=== PATIENT | male | born 1955 | race Native Hawaiian/Other Pacific Islander ===

== ENCOUNTER 2018-08-19 18:26 | Emergency (ER) | payer OTHER ==
[2018-08-19] MEDS ORDERED: LET TOPICAL TP ONE (22:02)
--- NOTE | 2018-08-19 22:02 | Emergency Department Report ---
ED GI Bleed HPI - General Chief complaint: GI Bleed Stated complaint: hemorrhoid pain Time Seen by Provider: 08/19/18 21:11 Source: patient, family Mode of arrival: Ambulatory Limitations: No Limitations - History of Present Illness Initial comments: This is a 63-year-old male here complaining of rectal pain with bleeding in for a long time. I specifically asked patient how long he said for 5 years. 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 He said his pain is 5 out of 10 and he is worried about his prostate and that he might be bleeding and that he just got insurance and he wants to have a full checkup. Force that he is to change his underwear every day per there is some blood in his underwear. Denies any feeling of weakness, denies abdominal pain. Denies back pain. Denies any urinary burning, frequency or urgency. He said the specialist that he saw was a stomach specialist and a little located in [place] and he did not like him. MD complaint: blood on toilet paper, blood streaked stool, other (blood in underwear were rectal pain and hemorrhoids) Onset/Timin -: year(s) Radiation: other (rectal pain externally) Severity scale (0 -10): 6 Quality: burning Consistency: constant Improves with: none Worsens with: bowel movement, other (touch and) Context: hemorrhoids, other (history of procedure for hemorrhoids internally.) Associated Symptoms: denies: abdominal pain, nausea, vomiting, epistaxis, fever/chills, headaches, loss of appetite, malaise, easy bruising, rash, other bleeding, shortness of breath, syncope, weakness Treatments Prior to Arrival: none - Related Data Previous Rx's Medication Instructions Recorded Last Taken Type HYDROcodone/APAP 5-325 [[place] 1 each PO Q6HR PRN #14 tablet 08/10/13 Unknown Rx 5/325 mg] Hydrocortisone/Lidocaine/Aloe 100 gm RC TID PRN #1 gel.w.appl 08/20/18 Unknown Rx [Lidocaine-Hc 2.8-0.55% Gel] Allergies Allergy/AdvReac Type Severity Reaction Status Date / Time Penicillins Allergy Hives Verified 08/19/18 18:32 ED Review of Systems ROS: Stated complaint: hemorrhoid pain Other details as noted in HPI Constitutional: denies: chills, fever ENT: denies: throat pain, congestion Respiratory: denies: cough, shortness of breath, wheezing Cardiovascular: denies: chest pain, palpitations, dyspnea on exertion, edema, syncope Gastrointestinal: hematochezia. denies: abdominal pain, nausea, vomiting, diarrhea, constipation, hematemesis Genitourinary: other (rectal pain). denies: urgency, dysuria, frequency, hematuria, discharge Musculoskeletal: denies: back pain, joint swelling, arthralgia, myalgia Skin: denies: rash Neurological: denies: headache, weakness, numbness, paresthesias, abnormal gait, vertigo ED Past Medical Hx - Past Medical History Previous Medical History?: Yes Hx Hypertension: Yes - Surgical History Past Surgical History?: No - Family History Family history: hypertension - Social History Smoking Status: Current Some Day Smoker Substance Use Type: None - Medications Home Medications: Home Medications Medication Instructions Recorded Confirmed Last Taken Type HYDROcodone/APAP 5-325 [[place] 1 each PO Q6HR PRN #14 tablet 08/10/13 Unknown Rx 5/325 mg] Hydrocortisone/Lidocaine/Aloe 100 gm RC TID PRN #1 gel.w.appl 08/20/18 Unknown Rx [Lidocaine-Hc 2.8-0.55% Gel] ED Physical Exam - General Limitations: No Limitations General appearance: alert, in no apparent distress - Head Head exam: Present: atraumatic, normocephalic, normal inspection - Eye Eye exam: Present: normal appearance, PERRL, EOMI Pupils: Present: normal accommodation - ENT ENT exam: Present: normal exam, normal orophraynx, mucous membranes moist - Neck Neck exam: Present: normal inspection, full ROM. Absent: tenderness, mening ismus, lymphadenopathy - Respiratory Respiratory exam: Present: normal lung sounds bilaterally. Absent: respiratory distress, chest wall tenderness - Cardiovascular Cardiovascular Exam: Present: regular rate, normal rhythm, normal heart sounds. Absent: systolic murmur, diastolic murmur - GI/Abdominal GI/Abdominal exam: Present: soft, normal bowel sounds. Absent: distended, tend erness, guarding, rebound, rigid, organomegaly, mass, bruit, pulsatile mass - Rectal Rectal exam: Present: normal rectal tone, heme (-) stool, hemorrhoids, tende rness (externally at hemorrhoid site). Absent: bloody stool, fecal impaction, mass, prostate tenderness - Extremities Exam Extremities exam: Present: normal inspection, full ROM, normal capillary refill, other (No cce. + 2 pulses in all extremities, no neurovascular compromise). Absent: tenderness, pedal edema - Back Exam Back exam: Present: normal inspection, full ROM, other (ambulates without any difficulties). Absent: tenderness, CVA tenderness (R), CVA tenderness (L), muscle spasm, paraspinal tenderness, vertebral tenderness, rash noted - Neurological Exam Neurological exam: Present: alert, oriented X3, normal gait - Psychiatric Psychiatric exam: Present: normal affect, normal mood - Skin Skin exam: Present: warm, dry, intact, normal color. Absent: rash ED Course Vital Signs 08/19/18 18:32 Temperature 99.1 F Pulse Rate 98 H Respiratory 18 Rate Blood Pressure 160/101 O2 Sat by Pulse 100 Oximetry Vital Signs 08/19/18 08/20/18 18:32 00:28 Temperature 99.1 F 98.2 F Pulse Rate 98 H 82 Respiratory 18 20 Rate Blood Pressure 160/101 Blood Pressure 156/89 [Left] O2 Sat by Pulse 100 97 Oximetry - Reevaluation(s) Reevaluation #1: 08/20/18 00:21 Topical let given to patient placed on hemorrhoids and a voice that it feels b nva. I gave him results of his CBC which was normal and no anemia found. ED Medical Decision Making - Lab Data Result diagrams: 08/19/18 22:00 Lab Results 08/19/18 Range/Units 22:00 WBC 8.9 (4.5-11.0) K/mm3 RBC 4.70 (3.65-5.03) M/mm3 Hgb 14.9 (11.8-15.2) gm/dl Hct 44.4 (35.5-45.6) % MCV 95 H (84-94) fl MCH 32 (28-32) pg MCHC 33 (32-34) % RDW 14.1 (13.2-15.2) % Plt Count 319 (140-440) K/mm3 Lymph % (Auto) 27.4 (13.4-35.0) % [place] % (Auto) 7.7 H (0.0-7.3) % Eos % (Auto) 1.8 (0.0-4.3) % Baso % (Auto) 1.0 (0.0-1.8) % Lymph # 2.4 (1.2-5.4) K/mm3 [place] # 0.7 (0.0-0.8) K/mm3 Eos # 0.2 (0.0-0.4) K/mm3 Baso # 0.1 (0.0-0.1) K/mm3 Seg Neutrophils % 62.1 (40.0-70.0) % Seg Neutrophils # 5.6 (1.8-7.7) K/mm3 - Medical Decision Making This is a 65-year-old male here report that he is having in rectal pain and bleeding from hemorrhoids. Patient had been placed around hemorrhoids last year at GI specialist but he said he did not go back because he did not like him. Patient is now here complaining that he needs to be checked. Hemoccult stool negative for bleeding. CBC is stable and rectal exam normal except he has external hemorrhoids. Patient was given LET to place on hemorrhoids which she did any studies from better. I discussed his laboratory results and treatment plan along with diagnosis and told him that he will need to follow up with primary care doctor as he does not have one, tower erector for his stomach and colonoscopy and surgeon for evaluation of hemorrhoids and probably removal. Patient does have access to care but he does not have any physician. Patient reports that he has stool everyday and stool is soft. Patient is given prescri ption for hydrocodone with lidocaine mixture and I told him that he needs to call all doctors that he was referred to on 08/22/2017 to schedule an appointment. Vital signs stable afebrile and in no acute distress. Critical care attestation.: If time is entered above; I have spent that time in minutes in the direct care of this critically ill patient, excluding procedure time. ED Disposition Clinical Impression: Rectal pain, External hemorrhoids without complication Disposition: DC-01 TO HOME OR SELFCARE Is pt being admited?: No Does the pt Need Aspirin: No Condition: Stable Instructions: Hemorrhoids (ED), Colonoscopy (GEN) Additional Instructions: Follow-up with multiple referrals given 2 units include primary care doctor, tower erector for colonoscopy, surgeon for hemorrhoids. Please see discharge instruction for details. Take medication as prescribed If you developed perfuse rectal bleeding and feeling weak, return to the emergency room otherwise call to schedule appointments next week. You will need to follow up in 2-3 days. Referrals: [facility] [Provider Group] - 2-3 Days ASHLEY JAVIER MD [Staff Physician] - 2-3 Days POLO SHEEHAN MD [Primary Care Provider] - 2-3 Days Forms: Accompanied Note
[2018-08-19 22:06] LABS: Basophils # (Auto) 0.1 K/mm3 (0.0-0.1); Eosinophils # (Auto) 0.2 K/mm3 (0.0-0.4); Eosinophils % (Auto) 1.8 % (0.0-4.3); Hematocrit 44.4 % (35.5-45.6); Hemoglobin 14.9 gm/dl (11.8-15.2); Lymphocytes # (Auto) 2.4 K/mm3 (1.2-5.4); Lymphocytes % (Auto) 27.4 % (13.4-35.0); Mean Corpuscular HGB Conc 33 % (32-34); Mean Corpuscular Volume 95 fl (84-94); Monocytes # (Auto) 0.7 K/mm3 (0.0-0.8); Monocytes % (Auto) 7.7 % (0.0-7.3); Platelet Count 319 K/mm3 (140-440); Red Cell Distribution Width 14.1 % (13.2-15.2)
[2018-08-20 00:29] VITALS: BP 156/89
== END 2018-08-20 02:06 | disposition home or self-care (01) ==
LOC: ED 18:26
DX: K64.4 Residual hemorrhoidal skin tags (principal); I10 Essential (primary) hypertension; F17.200 Nicotine dependence, unspecified, uncomplicated; Z79.899 Other long term (current) drug therapy; Z88.0 Allergy status to penicillin
CPT/HCPCS: 36415; 85025; 99283

== ENCOUNTER 2019-06-03 21:26 | Emergency (ER) | payer OTHER ==
--- NOTE | 2019-06-03 21:46 | Emergency Department Report ---
Blank Doc - Documentation Documentation: 64-year-old male that presents with dysuria and hematuria. This initial assessment/diagnostic orders/clinical plan/treatment(s) is/are subject to change based on patient's health status, clinical progression and re- assessment by fellow clinical providers in the ED. Further treatment and workup at subsequent clinical providers discretion. Patient/guardians urged not to elope from the ED as their condition may be serious if not clinically assessed and managed. Initial orders include: 1- Patient sent to [facility] for further evaluation and treatment 2- UA
[2019-06-03 22:17] LABS: Bilirubin,Urine NEG (Negative); Blood,Urine LG (Negative); Color,Urine Yellow (Yellow); Urobilinogen,Urine < 2.0 mg/dL (<2.0)
[2019-06-03 22:21] LABS: RBC,Urine > 182.0 /HPF (0.0-6.0)
--- NOTE | 2019-06-03 23:32 | Emergency Department Report ---
ED Male HPI - General Chief complaint: Urogenital-Male Stated complaint: BLOOD IN URINE Time Seen by Provider: 06/03/19 21:45 Source: patient Mode of arrival: Ambulatory Limitations: No Limitations - History of Present Illness Initial comments: This is a 64-year-old male who presents to the emergency room with hematuria and pelvic pain for 2 days. Past medical history of hypertension and nephrolithiasis. Current smoker. Reports urinary frequency with stabbing pain. Denies nausea, vomiting, diarrhea, penile discharge, testicular swelling or pain. MD Complaint: other (hematuria and pelvic pain) Onset/Timin -: days(s) Location: abdomen Radiation: none Severity: moderate Severity scale (0 -10): 6 Quality: stabbing Consistency: intermittent Improves with: none Worsens with: urination denies other symptoms - Related Data Previous Rx's Medication Instructions Recorded Last Taken Type Aspirin [Aspirin BABY CHEW TAB] 81 mg PO QDAY #30 tab.chew 12/09/18 Unknown Rx AtorvaSTATin [Lipitor] 40 mg PO QHS #30 tab 12/09/18 Unknown Rx Carvedilol [Coreg] 6.25 mg PO BID #60 tablet 12/09/18 Unknown Rx Clopidogrel [Plavix] 75 mg PO QDAY #30 tablet 12/09/18 Unknown Rx Furosemide [Lasix TAB] 40 mg PO QDAY #30 tablet 12/09/18 Unknown Rx ISOSORBIDE MONOnitrate [Imdur ER] 30 mg PO DAILY #30 tab.er.24h 12/09/18 Unknown Rx Nitroglycerin [Nitrostat] 0.4 mg SL Q5M PRN #25 tab 12/09/18 Unknown Rx Spironolactone [Aldactone] 25 mg PO QDAY #30 tablet 12/09/18 Unknown Rx Sulfamethoxazole/Trimethoprim 1 each PO BID #14 tablet 06/04/19 Unknown Rx [Bactrim DS TAB] Allergies Allergy/AdvReac Type Severity Reaction Status Date / Time Penicillins Allergy Hives Verified 08/19/18 18:32 ED Review of Systems ROS: Stated complaint: BLOOD IN URINE Other details as noted in HPI Constitutional: denies: chills, fever Respiratory: denies: cough, shortness of breath, wheezing Cardiovascular: denies: chest pain, palpitations Gastrointestinal: abdominal pain. denies: nausea, diarrhea Genitourinary: frequency, hematuria. denies: urgency, dysuria, discharge, testicular pain, testicular mass Musculoskeletal: denies: back pain, joint swelling, arthralgia Skin: denies: rash, lesions Neurological: denies: headache, weakness, paresthesias Psychiatric: denies: anxiety, depression ED Past Medical Hx - Past Medical History Hx Hypertension: Yes - Surgical History Additional Surgical History: hemroids - Social History Smoking Status: Never Smoker Substance Use Type: Alcohol - Medications Home Medications: Home Medications Medication Instructions Recorded Confirmed Last Taken Type Aspirin [Aspirin BABY CHEW TAB] 81 mg PO QDAY #30 tab.chew 12/09/18 Unknown Rx AtorvaSTATin [Lipitor] 40 mg PO QHS #30 tab 12/09/18 Unknown Rx Carvedilol [Coreg] 6.25 mg PO BID #60 tablet 12/09/18 Unknown Rx Clopidogrel [Plavix] 75 mg PO QDAY #30 tablet 12/09/18 Unknown Rx Furosemide [Lasix TAB] 40 mg PO QDAY #30 tablet 12/09/18 Unknown Rx ISOSORBIDE MONOnitrate [Imdur ER] 30 mg PO DAILY #30 tab.er.24h 12/09/18 Unknown Rx Nitroglycerin [Nitrostat] 0.4 mg SL Q5M PRN #25 tab 12/09/18 Unknown Rx Spironolactone [Aldactone] 25 mg PO QDAY #30 tablet 12/09/18 Unknown Rx Sulfamethoxazole/Trimethoprim 1 each PO BID #14 tablet 06/04/19 Unknown Rx [Bactrim DS TAB] ED Physical Exam - General Limitations: No Limitations General appearance: alert, in no apparent distress - Respiratory Respiratory exam: Present: normal lung sounds bilaterally. Absent: respiratory distress - Cardiovascular Cardiovascular Exam: Present: regular rate, normal rhythm. Absent: systolic murmur, diastolic murmur, rubs, gallop - GI/Abdominal GI/Abdominal exam: Present: soft, tenderness (suprapubic), normal bowel sounds. Absent: distended, guarding, rebound, rigid, organomegaly, mass, bruit, pulsatile mass, hernia - Back Exam Back exam: Absent: CVA tenderness (R), CVA tenderness (L), muscle spasm, paraspinal tenderness, vertebral tenderness, rash noted - Neurological Exam Neurological exam: Present: alert, oriented X3, normal gait - Psychiatric Psychiatric exam: Present: normal affect, normal mood - Skin Skin exam: Present: warm, dry, intact, normal color. Absent: rash ED Course Vital Signs 06/03/19 21:31 Temperature 97.5 F L Pulse Rate 73 Respiratory 18 Rate Blood Pressure 138/85 O2 Sat by Pulse 98 Oximetry ED Medical Decision Making - Lab Data Result diagrams: 06/03/19 23:49 06/03/19 23:49 Lab Results 06/03/19 06/03/19 06/03/19 Range/Units 21:53 23:49 23:49 WBC 7.4 (4.5-11.0) K/mm3 RBC 4.71 (3.65-5.03) M/mm3 Hgb 14.9 (11.8-15.2) gm/dl Hct 45.0 (35.5-45.6) % MCV 96 H (84-94) fl MCH 32 (28-32) pg MCHC 33 (32-34) % RDW 14.2 (13.2-15.2) % Plt Count 269 (140-440) K/mm3 Lymph % (Auto) 32.6 (13.4-35.0) % [place] % (Auto) 8.8 H (0.0-7.3) % Eos % (Auto) 3.7 (0.0-4.3) % Baso % (Auto) 1.1 (0.0-1.8) % Lymph # 2.4 (1.2-5.4) K/mm3 [place] # 0.7 (0.0-0.8) K/mm3 Eos # 0.3 (0.0-0.4) K/mm3 Baso # 0.1 (0.0-0.1) K/mm3 Seg Neutrophils % 53.8 (40.0-70.0) % Seg Neutrophils # 4.0 (1.8-7.7) K/mm3 Sodium 142 (137-145) mmol/L Potassium 4.2 (3.6-5.0) mmol/L Chloride 104.0 (98-107) mmol/L Carbon Dioxide 26 (22-30) mmol/L Anion Gap 16 mmol/L BUN 24 H (9-20) mg/dL Creatinine 1.1 (0.8-1.5) mg/dL Estimated GFR > 60 ml/min BUN/Creatinine Ratio 22 % Glucose 152 H (75-100) mg/dL Calcium 9.3 (8.4-10.2) mg/dL Total Bilirubin 0.30 (0.1-1.2) mg/dL AST 18 (5-40) units/L ALT 12 (7-56) units/L Alkaline Phosphatase 75 (35-129) units/L Total Protein 6.9 (6.3-8.2) g/dL Albumin 4.0 (3.9-5) g/dL Albumin/Globulin Ratio 1.4 % Urine Color Yellow (Yellow) Urine Turbidity Slightly-cloudy (Clear) Urine pH 6.0 (5.0-7.0) Ur Specific [place] 1.020 (1.003-1.030) Urine Protein 30 mg/dl (Negative) mg/dL Urine Glucose (UA) Neg (Negative) mg/dL Urine Ketones Neg (Negative) mg/dL Urine Blood Lg (Negative) Urine Nitrite Neg (Negative) Urine Bilirubin Neg (Negative) Urine Urobilinogen < 2.0 (<2.0) mg/dL Ur Leukocyte Esterase Neg (Negative) Urine WBC (Auto) 126.0 H (0.0-6.0) /HPF Urine RBC (Auto) > 182.0 (0.0-6.0) /HPF Urine Yeast (Budding) 2+ /HPF - Radiology Data Radiology results: report reviewed CT ABDOMEN AND PELVIS WITHOUT CONTRAST INDICATION / CLINICAL INFORMATION: pelvic pain, hematuria, r/o stones. TECHNIQUE: Axial CT images were obtained through the abdomen and pelvis without IV contrast. All CT scans at this location are performed using CT dose reduction for ALARA by means of automated exposure control. COMPARISON: CT dated 12/09/18 FINDINGS: LOWER CHEST: No significant abnormality. LIVER: Multiple simple cysts are unchanged. GALLBLADDER: No significant abnormality. BILE DUCTS: No significant abnormality. PANCREAS: No significant abnormality. SPLEEN: No significant abnormality. ADRENALS: No significant abnormality. RIGHT KIDNEY and URETER: Several tiny nonobstructing intrarenal stones. No ureteral stone or hydronephrosis. LEFT KIDNEY and URETER: Small nonobstructing stone in the upper pole. No ureteral stone or hydronephrosis. STOMACH and SMALL BOWEL: No significant abnormality. COLON: No significant abnormality. APPENDIX: No significant abnormality. PERITONEUM: No free fluid. No free air. No fluid collection. LYMPH NODES: No significant adenopathy. AORTA and ARTERIES: Mild atherosclerotic calcification without acute abnormalit y. IVC and VEINS: No significant abnormality. URINARY BLADDER: No significant abnormality. REPRODUCTIVE ORGANS: No significant abnormality. ADDITIONAL FINDINGS: None. SKELETAL SYSTEM: No significant abnormality. IMPRESSION: 1. No inflammatory process or bowel obstruction. 2. Bilateral nephrolithiasis but no ureteral stones or hydronephrosis. - Medical Decision Making Patient was examined by me. Patient is nontoxic appearing and stable. Vitals are normal. Obtained labs and CT of abdomen and pelvis. Urine positive for infection. Abdomen and pelvis 1. No inflammatory process or bowel obstruction. 2. Bilateral nephrolithiasis but no ureteral stones or hydronephrosis. Given analgesics while in the ER. Start bactrim DS 1 tab po bid x 7 days. Patient informed of results. Instructed to take Tylenol or ibuprofen for pain. Referral to Urology. Follow up with PCP or return to the ER with worsening symptoms. Patient discharged home in stable condition. Critical care attestation.: If time is entered above; I have spent that time in minutes in the direct care of this critically ill patient, excluding procedure time. ED Disposition Clinical Impression: Nephrolithiasis, Acute cystitis with hematuria Hematuria Qualifiers: Hematuria type: gross Qualified Code(s): R31.0 - Gross hematuria Disposition: - TO HOME OR SELFCARE Is pt being admited?: No Condition: Stable Instructions: Urinary Tract Infection in Men (ED), Kidney Stones (ED) Additional Instructions: Increase fluid intake to 1-2 L per day. Prescriptions: Sulfamethoxazole/Trimethoprim [Bactrim DS TAB] 1 each PO BID #14 tablet Referrals: [facility] [Provider Group] - 3-5 Days KASEY HAMILTON MD [Primary Care Provider] - 3-5 Days [facility] [Outside] - 3-5 Days Time of Disposition: 00:32
[2019-06-03 23:59] LABS: Basophils # (Auto) 0.1 K/mm3 (0.0-0.1); Basophils % (Auto) 1.1 % (0.0-1.8); Eosinophils # (Auto) 0.3 K/mm3 (0.0-0.4); Eosinophils % (Auto) 3.7 % (0.0-4.3); Hemoglobin 14.9 gm/dl (11.8-15.2); Lymphocytes # (Auto) 2.4 K/mm3 (1.2-5.4); Lymphocytes % (Auto) 32.6 % (13.4-35.0); Mean Corpuscular HGB Conc 33 % (32-34); Mean Corpuscular Volume 96 fl (84-94); Monocytes # (Auto) 0.7 K/mm3 (0.0-0.8); Monocytes % (Auto) 8.8 % (0.0-7.3); Platelet Count 269 K/mm3 (140-440); Red Blood Count 4.71 M/mm3 (3.65-5.03); Red Cell Distribution Width 14.2 % (13.2-15.2)
[2019-06-04 00:22] LABS: Alanine Aminotransferase 12 units/L (7-56); BUN/Creatinine Ratio 22; Blood Urea Nitrogen 24 mg/dL (9-20); Calcium 9.3 mg/dL (8.4-10.2); Hemolysis Index 4
--- NOTE | 2019-06-04 00:22 | Cat Scan Report ---
CT ABDOMEN AND PELVIS WITHOUT CONTRAST INDICATION / CLINICAL INFORMATION: pelvic pain, hematuria, r/o stones. TECHNIQUE: Axial CT images were obtained through the abdomen and pelvis without IV contrast. All CT scans at [facility] location are performed using CT dose reduction for ALARA by means of automated exposure control. COMPARISON: CT dated 12/09/18 FINDINGS: LOWER CHEST: No significant abnormality. LIVER: Multiple simple cysts are unchanged. GALLBLADDER: No significant abnormality. BILE DUCTS: No significant abnormality. PANCREAS: No significant abnormality. SPLEEN: No significant abnormality. ADRENALS: No significant abnormality. RIGHT KIDNEY and URETER: Several tiny nonobstructing intrarenal stones. No ureteral stone or hydronep hrosis. LEFT KIDNEY and URETER: Small nonobstructing stone in the upper pole. No ureteral stone or hydronephr osis. STOMACH and SMALL BOWEL: No significant abnormality. COLON: No significant abnormality. APPENDIX: No significant abnormality. PERITONEUM: No free fluid. No free air. No fluid collection. LYMPH NODES: No significant adenopathy. AORTA and ARTERIES: Mild atherosclerotic calcification without acute abnormality. IVC and VEINS: No significant abnormality. URINARY BLADDER: No significant abnormality. REPRODUCTIVE ORGANS: No significant abnormality. ADDITIONAL FINDINGS: None. SKELETAL SYSTEM: No significant abnormality. IMPRESSION: 1. No inflammatory process or bowel obstruction. 2. Bilateral nephrolithiasis but no ureteral stones or hydronephrosis. Signer Name: Mazin Zaldivar MD Signed: 06/04/2019 12:18 AM Workstation Name: [id number]
[2019-06-04 03:17] VITALS: BP 151/100
== END 2019-06-04 00:45 | disposition home or self-care (01) ==
LOC: ED 21:26
DX: N20.0 Calculus of kidney (principal); I10 Essential (primary) hypertension; Z88.0 Allergy status to penicillin; Z79.82 Long term (current) use of aspirin; Z79.899 Other long term (current) drug therapy
CPT/HCPCS: 36415; 74176; 80053; 81001; 85025; 87086; 99284

== ENCOUNTER 2019-06-04 17:19 | Emergency (ER) | payer OTHER ==
[2019-06-04 18:14] VITALS: BP 133/81
--- NOTE | 2019-06-04 18:14 | Event Note ---
ED Screening Note Date of service: 06/04/19 Time: 18:11 ED Screening Note: 64 y o male returns to ED cc stating medication he was given yesterday for UTI is making him experience diarhea. This initial assessment/diagnostic orders/clinical plan/treatment(s) is/are subject to change based on patients health status, clinical progression and re- assessment by fellow clinical providers in the ED. Further treatment and workup at subsequent clinical providers discretion. Patient/guardian urged not to elope from the ED as their condition may be serious if not clinically assessed and managed. Initial orders include:
[2019-06-04 19:42] LABS: Bilirubin,Urine NEG (Negative); Blood,Urine LG (Negative); Color,Urine Yellow (Yellow); Protein,Urine <15 mg/dL mg/dL (Negative); Urobilinogen,Urine < 2.0 mg/dL (<2.0)
[2019-06-04 19:43] LABS: RBC,Urine > 182.0 /HPF (0.0-6.0)
--- NOTE | 2019-06-04 20:36 | Emergency Department Report ---
Vomiting/Diarrhea - HPI Chief Complaint: Abdominal Pain Stated Complaint: ABD PAIN Time Seen by Provider: 06/04/19 19:03 Duration: 1 Day Severity: mild Nausea/Vomiting Severity: None Diarrhea Severity: Mild Pain Severity: None Symptoms: Yes Watery Diarrhea, No Bloody diarrhea, No Fever, No Able to Tolerate Fluids, No Recent Unusual Foods, No Recent Untreated Water, No Recent use of Antibiotics, No Family w/ Similar Symptoms, No Contacts w/ Similar Symptoms, No Rash, No Hematuria, No Recent URI Symptoms Other History: This is a 64-year-old male nontoxic, well nourished in appearance, no acute signs of distress presents to the ED with c/o of some diarrhea after started taking Bactrim. Was diagnoed with UTI yesterday. Patient denies any n/v. Patient denies any abdominal pain, chest pain, short of breath, fever, chills, headache, stiff neck, numbness or tingling. Patient denies any constipation. Patient denies any recent travels. Patient stated allergies to PCN. ED Review of Systems ROS: Stated complaint: ABD PAIN Other details as noted in HPI Constitutional: denies: chills, fever Eyes: denies: eye pain, eye discharge, vision change ENT: denies: ear pain, throat pain Respiratory: denies: cough, shortness of breath, wheezing Cardiovascular: denies: chest pain, palpitations Endocrine: no symptoms reported Gastrointestinal: diarrhea. denies: abdominal pain, nausea Genitourinary: denies: urgency, dysuria Musculoskeletal: denies: back pain, joint swelling, arthralgia Skin: denies: rash, lesions Neurological: denies: headache, weakness, paresthesias Psychiatric: denies: anxiety, depression Hematological/Lymphatic: denies: easy bleeding, easy bruising ED Past Medical Hx - Past Medical History Previous Medical History?: Yes Hx Hypertension: Yes - Surgical History Past Surgical History?: Yes Additional Surgical History: hemroids - Social History Smoking Status: Never Smoker Substance Use Type: None - Medications Home Medications: Home Medications Medication Instructions Recorded Confirmed Last Taken Type Aspirin [Aspirin BABY CHEW TAB] 81 mg PO QDAY #30 tab.chew 12/09/18 Unknown Rx AtorvaSTATin [Lipitor] 40 mg PO QHS #30 tab 12/09/18 Unknown Rx Carvedilol [Coreg] 6.25 mg PO BID #60 tablet 12/09/18 Unknown Rx Clopidogrel [Plavix] 75 mg PO QDAY #30 tablet 12/09/18 Unknown Rx Furosemide [Lasix TAB] 40 mg PO QDAY #30 tablet 12/09/18 Unknown Rx ISOSORBIDE MONOnitrate [Imdur ER] 30 mg PO DAILY #30 tab.er.24h 12/09/18 Unknown Rx Nitroglycerin [Nitrostat] 0.4 mg SL Q5M PRN #25 tab 12/09/18 Unknown Rx Spironolactone [Aldactone] 25 mg PO QDAY #30 tablet 12/09/18 Unknown Rx Ciprofloxacin HCl [Ciprofloxacin 500 mg PO Q12HR #14 tab 06/04/19 Unknown Rx TAB] Sulfamethoxazole/Trimethoprim 1 each PO BID #14 tablet 06/04/19 Unknown Rx [Bactrim DS TAB] Vomiting Diarrhea Exam - Exam General: Vital signs noted. No distress. Alert and acting appropriately. HEENT: Yes Moist Mucous Membranes, No Pharyngeal Erythema, No Pharyngeal Exudates, No Rhinorrhea, No Conjuctival Injection, No Frontal Tenderness, No Maxillary Tenderness Neck: No Adenopathy, No Rigidity Lungs: Yes Clear Lung Sounds, Yes Good Air Exchange, No Wheezes, No Stridor, No Cough, No Nasal Flaring, No Retractions, No Use of Accessory Muscles Heart exam: Regular: Yes, Murmur: No, Tachycardia: No Abdomen: Tenderness: No, Peritoneal Signs: No, Distention: No, Hyperactive Bowel sounds: No Skin exam: Rash: No, Edema: No, Normal turgor: Yes Neurologic: Alert and oriented, no deficits. Musculoskeletal: Unremarkable. ED Course Vital Signs 06/04/19 18:09 Temperature 98.2 F Pulse Rate 78 Respiratory 18 Rate Blood Pressure 133/81 O2 Sat by Pulse 100 Oximetry - Reevaluation(s) Reevaluation #1: 06/04/19 20:38 Patient is speaking in full sentences with no signs of distress noted. ED Medical Decision Making - Medical Decision Making This is a 64-year-old male that presents with diarrhea due to side effects of Bactrim. Patient is stable and was examined by me. Urine has been obtained and compared to yesterday urine is significantly improving. I will change patient antibiotics to ciprofloxacin. Patient was educated side effects of Cipro is what to avoid. CT scan and labs has been reviewed from yesterday. Patient currently denies any abdominal pain. Patient was instructed to Follow-up with a primary care doctor in 3-5 days or if symptoms worsen and continue return to emergency room as soon as possible. At time of discharge, the patient does not seem toxic or ill in appearance. No acute signs of distress noted. Patient agrees to discharge treatment plan of care. No further questions noted by the patient. Critical care attestation.: If time is entered above; I have spent that time in minutes in the direct care of this critically ill patient, excluding procedure time. ED Disposition Clinical Impression: Diarrhea due to drug Disposition: DC-01 TO HOME OR SELFCARE Is pt being admited?: No Does the pt Need Aspirin: No Condition: Stable Instructions: Acute Diarrhea (ED), Ciprofloxacin (By mouth) Additional Instructions: Follow-up with a primary care doctor in 3-5 days or if symptoms worsen and continue return to emergency room as soon as possible. Stop taking Bactrim and start taking Ciprofloxcin. Prescriptions: Ciprofloxacin HCl [Ciprofloxacin TAB] 500 mg PO Q12HR #14 tab Referrals: PRIMARY MD ESTIEVN [Referring] - 3-5 Days IRVIN AN MD [Staff Physician] - 3-[address] [facility] [Outside] - 3-5 Days [facility] [Outside] - 3-5 Days Time of Disposition: 20:41
== END 2019-06-04 20:56 | disposition home or self-care (01) ==
LOC: ED 17:19
DX: R19.7 Diarrhea, unspecified (principal); I10 Essential (primary) hypertension; Z88.0 Allergy status to penicillin; Z79.82 Long term (current) use of aspirin; Z79.899 Other long term (current) drug therapy
CPT/HCPCS: 81001; 99282

== ENCOUNTER 2019-11-18 05:03 | Inpatient (IN) | payer OTHER | END 2019-11-21 14:59 | disposition home or self-care (01) | DRG 291 | LOC: ED 05:03 → 3A 09:16 → 4A 11-19 10:58 | PROVIDERS: ADMIT Internal Medicine | PROC: 4A033R1 Measurement of Arterial Saturation, Peripheral, Percutaneous Approach (ICD-10-PCS; principal; 2019-11-18) | DX: I11.0 Hypertensive heart disease with heart failure (principal); J96.21 Acute and chronic respiratory failure with hypoxia; I50.43 Acute on chronic combined systolic (congestive) and diastolic (congestive) heart failure; J20.9 Acute bronchitis, unspecified; F17.210 Nicotine dependence, cigarettes, uncomplicated; I25.10 Atherosclerotic heart disease of native coronary artery without angina pectoris; D72.829 Elevated white blood cell count, unspecified; I25.5 Ischemic cardiomyopathy; I51.3 Intracardiac thrombosis, not elsewhere classified; I27.20 Pulmonary hypertension, unspecified; E78.5 Hyperlipidemia, unspecified; Z71.6 Tobacco abuse counseling; I25.2 Old myocardial infarction; Z95.1 Presence of aortocoronary bypass graft; Z88.0 Allergy status to penicillin; Z03.818 Encounter for observation for suspected exposure to other biological agents ruled out ==

== ENCOUNTER 2020-03-29 13:46 | Emergency (ER) | payer OTHER ==
[2020-03-29 14:08] VITALS: BP 116/76
--- NOTE | 2020-03-29 14:44 | XRay Report ---
RIGHT SHOULDER 3 VIEW(S) INDICATION / CLINICAL INFORMATION: injury COMPARISON: None available. FINDINGS: BONES / JOINT(S): No acute fracture or subluxation. No significant arthritis. SOFT TISSUES: No significant abnormality. ADDITIONAL FINDINGS: None. Signer Name: Benjamin Burger MD Signed: 03/29/2020 2:40 PM Workstation Name: [id number]
[2020-03-29] MEDS ORDERED: IBUPROFEN 600 MG TAB PO ONE (16:09)
--- NOTE | 2020-03-29 16:10 | Emergency Department Report ---
Upper Extremity - HPI Chief Complaint: Extremity Injury, Upper Stated Complaint: RT SHOULDER PAIN Time Seen by Provider: 03/29/20 16:08 Upper Extremity: Right Shoulder Occurred When: 2 Days Severity: severe Symptoms: Yes Pain with Movement, Yes Limited Range of Movement, No Deformity, No Numbness, No Weakness, No Swelling, No Bruising/Ecchymosis, No Laceration or Abrasion Other History: 64-year-old male presents to the emergency room complaining of right shoulder pain. Patient reports he is unable to raise his arm at shoulder level. Patient states is been going on for 2 days. Patient states that he has been overusing his right arm with speckling on sheet rock. Patient states that the pain is so bad is not able to sleep or eat. Patient has not taken any pain medications. Patient has an allergy to penicillin. Patient has multiple past medical history of congestive heart failure, COPD, heart attack and hypertension. ED Review of Systems ROS: Stated complaint: RT SHOULDER PAIN Other details as noted in HPI Comment: All other systems reviewed and negative ED Past Medical Hx - Past Medical History Hx Hypertension: Yes Hx Heart Attack/AMI: Yes Hx Congestive Heart Failure: Yes Hx Asthma: No Hx COPD: Yes - Surgical History Additional Surgical History: hemroids - Social History Smoking Status: Former Smoker Substance Use Type: None - Medications Home Medications: Home Medications Medication Instructions Recorded Confirmed Last Taken Type Aspirin [Aspirin BABY CHEW TAB] 81 mg PO QDAY #30 tab.chew 12/09/18 Unknown Rx Clopidogrel [Plavix] 75 mg PO QDAY #30 tablet 12/09/18 Unknown Rx Nitroglycerin [Nitrostat] 0.4 mg SL Q5M PRN #25 tab 12/09/18 Unknown Rx Spironolactone [Aldactone] 25 mg PO QDAY #30 tablet 12/09/18 Unknown Rx Acetaminophen [Acetaminophen TAB] 325 mg PO Q4H PRN #15 tablet 11/21/19 Unknown Rx AtorvaSTATin [Lipitor] 40 mg PO QHS #30 tab 11/21/19 Unknown Rx Furosemide [Lasix TAB] 40 mg PO QDAY #30 tablet 11/21/19 Unknown Rx ISOSORBIDE MONOnitrate [Imdur ER] 30 mg PO DAILY #30 tab.er.24h 11/21/19 Unknown Rx carvediloL [Coreg] 6.25 mg PO BID #60 tablet 11/21/19 Unknown Rx lisinopriL [Zestril TAB] 2.5 mg PO QDAY #30 tablet 11/21/19 Unknown Rx Ibuprofen [Motrin 600 MG tab] 600 mg PO Q8H PRN #9 tablet 03/29/20 Unknown Rx Upper Extremity Exam - Exam General: Vital signs noted. No distress. Alert and acting appropriately. Head and Torso: No HEENT Abnormality, No Neck Tenderness, No Chest/Lungs Abnormality, No Abdominal Tenderness, No Back Tenderness Shoulder Exam: Yes Shoulder Tenderness, Yes AC Joint Tenderness, No Clavicle Tenderness, No Normal Range of Motion in Shoulder Arm Exam: No Arm/Humerus Tenderness, No Arm Deformity Elbow: No Elbow Tenderness, No Normal Range of Motion in Elbow, No Elbow Def ormity Forearm: No Forearm Tenderness, No Forearm Deformity, No Pain with Pronation, No Pain with Supination Wrist: Yes Normal ROM in Wrist, No Wrist Tenderness, No Wrist Deformity, No Snuffbox Tenderness, No Pain with Axial Thumb Compression Hand: Yes Normal ROM in Digit(s), No Hand Tenderness, No Hand Deformity, No Digit Tenderness, No Digit(s) Deformity, No Tendon Dysfunction CMS Exam: No Broken Skin, No Normal Distal Pulses, No Normal Capillary Refill, No Normal Distal Sensation ED Course Vital Signs 03/29/20 14:05 Temperature 97.3 F L Pulse Rate 81 Respiratory 18 Rate Blood Pressure 116/76 O2 Sat by Pulse 97 Oximetry ED Medical Decision Making - Radiology Data Radiology results: report reviewed Print Report Referring Physician:GOMEZ BYRDPatient Name:PATRICIA WUOPatient ID:[id number] of :[id number]:MaleAccession:[id number] Date:[id number] Status:Finalized Findings [facility] [address] [place] [address] XRay Report Signed Patient: PATRICIA BARTH MR#: [id number] : 1955 Acct:[id number] Age/Sex: 64 / M ADM Date: 03/29/20 Loc: ED Attending Dr: Ordering Physician: GOMEZ BYRD MD Date of Service: 03/29/20 Procedure(s): XR shoulder 2+V RT Accession Number(s): [id number] cc: ED MD CARSON Fluoro Time In Minutes: RIGHT SHOULDER 3 VIEW(S) INDICATION / CLINICAL INFORMATION: injury COMPARISON: None available. FINDINGS: BONES / JOINT(S): No acute fracture or subluxation. No significant arthritis. SOFT TISSUES: No significant abnormality. ADDITIONAL FINDINGS: None. Signer Name: Benjamin Burger MD Signed: 03/29/2020 2:40 PM Workstation Name: [id number] Transcribed By: TL Dictated By: Benjamin Burger MD Electronically Authenticated By: Benjamin Burger MD Signed Date/Time: 03/29/201439 DD/ 39 TD/TT: - Medical Decision Making 64-year-old male presents to the emergency room complaining of right shoulder pain. Patient reports he is unable to raise his arm at shoulder level. Patient states is been going on for 2 days. Patient states that he has been overusing his right arm with speckling on sheet rock. Patient states that the pain is so bad is not able to sleep or eat. Patient has not taken any pain medications. Patient has an allergy to penicillin. Patient has multiple past medical history of congestive heart failure, COPD, heart attack and hypertension. Plain x-ray films shows no fractures or dislocation. I recommend patient to follow-up with an orthopedic provider for MRI. Patient was ordered ibuprofen 600 mg for pain management. Patient is requesting a list of homeless shelters. That has been provided to patient. Critical care attestation.: If time is entered above; I have spent that time in minutes in the direct care of this critically ill patient, excluding procedure time. ED Disposition Clinical Impression: Pain of right shoulder joint on movement Disposition: DC-01 TO HOME OR SELFCARE Is pt being admited?: No Does the pt Need Aspirin: No Condition: Stable Instructions: Rotator Cuff Tendinitis (ED), Rotator Cuff Injury (ED) Additional Instructions: Please take ibuprofen as needed. Follow-up with orthopedic provider. I have given you a list of homeless shelters and community resources. Prescriptions: Ibuprofen [Motrin 600 MG tab] 600 mg PO Q8H PRN #9 tablet PRN Reason: Pain Referrals: PRIMARY MD ESTIVEN [Primary Care Provider] - 3-5 Days EMPERATRIZ HUNT MD [Staff Physician] - 3-5 Days
== END 2020-03-29 17:22 | disposition home or self-care (01) ==
LOC: ED 13:46
DX: M25.511 Pain in right shoulder (principal); I50.9 Heart failure, unspecified; I11.0 Hypertensive heart disease with heart failure; I25.2 Old myocardial infarction; J44.9 Chronic obstructive pulmonary disease, unspecified; Z98.890 Other specified postprocedural states; Z87.891 Personal history of nicotine dependence; Z79.1 Long term (current) use of non-steroidal anti-inflammatories (NSAID); Z79.899 Other long term (current) drug therapy; Z88.0 Allergy status to penicillin

== ENCOUNTER 2021-02-23 21:12 | Emergency (ER) | payer OTHER ==
--- NOTE | 2021-02-24 10:34 | Electrocardiograph Report ---
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
--- NOTE | 2021-03-19 08:43 | ED Elopement Review ---
ED Pt Elopement review - Results review Lab results: I did not evaluate this patient.
== END 2021-02-23 22:23 ==
LOC: ED 21:12
DX: R07.9 Chest pain, unspecified (principal); R06.00 Dyspnea, unspecified; Z53.21 Procedure and treatment not carried out due to patient leaving prior to being seen by health care provider
CPT/HCPCS: 93005

== ENCOUNTER 2021-07-21 12:20 | Emergency (ER) | payer OTHER ==
[2021-07-21 13:23] VITALS: BP 134/82
--- NOTE | 2021-07-22 17:30 | Electrocardiograph Report ---
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
== END 2021-07-21 13:25 | disposition left against medical advice (07) ==
LOC: ED 12:20
DX: R07.89 Other chest pain (principal); Z53.21 Procedure and treatment not carried out due to patient leaving prior to being seen by health care provider
CPT/HCPCS: 93005

== ENCOUNTER 2021-09-07 14:12 | Emergency (ER) | payer SELFPAY ==
[2021-09-08] MEDS ORDERED: DEXTROSE 10% *Hypoglycemia IV ONE ×2 (20:20→20:21)
== END 2021-09-07 23:33 | disposition home or self-care (01) ==
LOC: ED 14:12
DX: R31.9 Hematuria, unspecified (principal); Z53.21 Procedure and treatment not carried out due to patient leaving prior to being seen by health care provider
CPT/HCPCS: J3490

== ENCOUNTER 2022-03-06 18:36 | Emergency (ER) | payer SELFPAY ==
[2022-03-06 20:54] LABS: Basophils # (Auto) 0.1 K/mm3 (0.0-0.1); Basophils % (Auto) 0.7 % (0.0-1.8); Hematocrit 41.3 % (35.5-45.6); Hemoglobin 14.2 gm/dl (11.8-15.2); Lymphocytes # (Auto) 0.9 K/mm3 (1.2-5.4); Lymphocytes % (Auto) 6.3 % (13.4-35.0); Mean Corpuscular HGB Conc 34 % (32-34); Mean Corpuscular Volume 93 fl (84-94); Monocytes # (Auto) 1.4 K/mm3 (0.0-0.8); Monocytes % (Auto) 10.4 % (0.0-7.3); Platelet Count 227 K/mm3 (140-440); Red Blood Count 4.47 M/mm3 (3.65-5.03); Red Cell Distribution Width 13.6 % (13.2-15.2)
[2022-03-06 21:09] LABS: Alanine Aminotransferase 5 units/L (7-56); Albumin 3.8 g/dL (3.9-5); BUN/Creatinine Ratio 11; Blood Urea Nitrogen 13 mg/dL (9-20); Calcium 8.5 mg/dL (8.4-10.2); Hemolysis Index 21
[2022-03-06 21:11] LABS: Bilirubin,Direct < 0.2 mg/dL (0-0.2)
[2022-03-06 21:55] LABS: Bilirubin,Urine Negative (Negative); Color,Urine Colorless (Yellow)
[2022-03-06 21:56] LABS: Blood,Urine Moderate (Negative); Urobilinogen,Urine 0.2 mg/dL (<2.0)
[2022-03-06 21:58] LABS: Mucus,Urine FEW /HPF
--- NOTE | 2022-03-06 22:34 | Emergency Department Report ---
ED General Adult HPI - General Chief complaint: Fever Stated complaint: WEAKNESS Time Seen by Provider: 03/06/22 19:41 Source: patient, EMS Mode of arrival: Stretcher Limitations: No Limitations - History of Present Illness Initial comments: Patient is a 66-year-old male presenting to ED with complaint of generalized weakness beginning yesterday. Severity scale (0 -10): 0 - Related Data Previous Rx's Medication Instructions Recorded Last Taken Type Aspirin [Aspirin BABY CHEW TAB] 81 mg PO QDAY #30 tab.chew 12/09/18 Unknown Rx Clopidogrel [Plavix] 75 mg PO QDAY #30 tablet 12/09/18 Unknown Rx Nitroglycerin [Nitrostat] 0.4 mg SL Q5M PRN #25 tab 12/09/18 Unknown Rx Spironolactone [Aldactone] 25 mg PO QDAY #30 tablet 12/09/18 Unknown Rx Acetaminophen [Acetaminophen TAB] 325 mg PO Q4H PRN #15 tablet 11/21/19 Unknown Rx AtorvaSTATin [Lipitor] 40 mg PO QHS #30 tab 11/21/19 Unknown Rx Furosemide [Lasix TAB] 40 mg PO QDAY #30 tablet 11/21/19 Unknown Rx ISOSORBIDE MONOnitrate [Imdur ER] 30 mg PO DAILY #30 tab.er.24h 11/21/19 Unknown Rx carvediloL [Coreg] 6.25 mg PO BID #60 tablet 11/21/19 Unknown Rx lisinopriL [Zestril TAB] 2.5 mg PO QDAY #30 tablet 11/21/19 Unknown Rx Ibuprofen [Motrin 600 MG tab] 600 mg PO Q8H PRN #9 tablet 03/29/20 Unknown Rx Ciprofloxacin HCl [Ciprofloxacin 500 mg PO BID #28 03/06/22 Unknown Rx TAB] Allergies Allergy/AdvReac Type Severity Reaction Status Date / Time Penicillins Allergy Hives Verified 08/19/18 18:32 ED Review of Systems ROS: Stated complaint: WEAKNESS Other details as noted in HPI Constitutional: malaise, weakness. denies: chills, fever Respiratory: denies: cough, shortness of breath, wheezing Cardiovascular: denies: chest pain, palpitations Gastrointestinal: denies: abdominal pain, nausea, diarrhea Musculoskeletal: denies: back pain, joint swelling, arthralgia Skin: denies: rash, lesions Neurological: denies: headache, weakness, paresthesias Psychiatric: denies: anxiety, depression ED Past Medical Hx - Past Medical History Hx Hypertension: Yes Hx Heart Attack/AMI: Yes Hx Congestive Heart Failure: Yes Hx Asthma: No Hx COPD: Yes - Surgical History Additional Surgical History: hemroids - Social History Smoking Status: Former Smoker Substance Use Type: None - Medications Home Medications: Home Medications Medication Instructions Recorded Confirmed Last Taken Type Aspirin [Aspirin BABY CHEW TAB] 81 mg PO QDAY #30 tab.chew 12/09/18 Unknown Rx Clopidogrel [Plavix] 75 mg PO QDAY #30 tablet 12/09/18 Unknown Rx Nitroglycerin [Nitrostat] 0.4 mg SL Q5M PRN #25 tab 12/09/18 Unknown Rx Spironolactone [Aldactone] 25 mg PO QDAY #30 tablet 12/09/18 Unknown Rx Acetaminophen [Acetaminophen TAB] 325 mg PO Q4H PRN #15 tablet 11/21/19 Unknown Rx AtorvaSTATin [Lipitor] 40 mg PO QHS #30 tab 11/21/19 Unknown Rx Furosemide [Lasix TAB] 40 mg PO QDAY #30 tablet 11/21/19 Unknown Rx ISOSORBIDE MONOnitrate [Imdur ER] 30 mg PO DAILY #30 tab.er.24h 11/21/19 Unknown Rx carvediloL [Coreg] 6.25 mg PO BID #60 tablet 11/21/19 Unknown Rx lisinopriL [Zestril TAB] 2.5 mg PO QDAY #30 tablet 11/21/19 Unknown Rx Ibuprofen [Motrin 600 MG tab] 600 mg PO Q8H PRN #9 tablet 03/29/20 Unknown Rx Ciprofloxacin HCl [Ciprofloxacin 500 mg PO BID #28 03/06/22 Unknown Rx TAB] ED Physical Exam - General Limitations: No Limitations General appearance: alert, in no apparent distress - Head Head exam: Present: atraumatic, normocephalic - Neck Neck exam: Present: normal inspection - Respiratory Respiratory exam: Present: normal lung sounds bilaterally. Absent: respiratory distress - Cardiovascular Cardiovascular Exam: Present: regular rate, normal rhythm. Absent: systolic murmur, diastolic murmur, rubs, gallop - GI/Abdominal GI/Abdominal exam: Present: soft. Absent: distended, tenderness - Rectal Rectal exam: Present: deferred - Neurological Exam Neurological exam: Present: alert, oriented X3 - Psychiatric Psychiatric exam: Present: normal affect, normal mood - Skin Skin exam: Present: warm, dry, intact, normal color ED Course Vital Signs 03/06/22 03/06/22 18:36 21:24 Temperature 98 F Pulse Rate 110 H 102 H Respiratory 16 18 Rate Blood Pressure 150/80 127/65 [Left] O2 Sat by Pulse 98 99 Oximetry ED Medical Decision Making - Lab Data Result diagrams: 03/06/22 20:28 03/06/22 20:28 - Medical Decision Making WBC count 13. Chemistry unremarkable. UTI present. Patient is allergic to penicillin. Will discharge home on Cipro. Critical care attestation.: If time is entered above; I have spent that time in minutes in the direct care of this critically ill patient, excluding procedure time. ED Disposition Clinical Impression: Urinary tract infection, Generalized weakness Disposition: 01 HOME / SELF CARE / HOMELESS Is pt being admited?: No Condition: Stable Instructions: Urinary Tract Infection, Adult Additional Instructions: Please follow-up with your regular doctor in 1 to 2 weeks. You may return if your symptoms worsen.
[2022-03-07 00:22] VITALS: BP 126/89
== END 2022-03-07 00:22 | disposition home or self-care (01) ==
LOC: ED 18:36
DX: N39.0 Urinary tract infection, site not specified (principal); R53.1 Weakness; Z88.0 Allergy status to penicillin; I10 Essential (primary) hypertension; Z87.891 Personal history of nicotine dependence
CPT/HCPCS: 36415; 80048; 80076; 81001; 85025; 87076; 87086; 87186; 99284